=== PATIENT | male | born 1995 | race Caucasian/White ===

== ENCOUNTER 2019-06-10 16:49 | Emergency (ER) | payer OTHER, SELFPAY ==
[2019-06-10 16:49] VITALS: BP 156/84; PULSE 99; RESP 18; TEMP 36.8; O2SAT 99; BMI 21.4
--- NOTE | 2019-06-10 18:35 | ED.URI ---
HPI - URI/Sore Throat <Snadhya Mcclellan PA-C - Last Filed: 06/10/19 21:25> General Chief Complaint: Upper Respiratory Symptoms Stated Complaint: SORE THROAT Time Seen by Provider: 06/10/19 17:03 Source: patient Mode of arrival: ambulatory Limitations: no limitations History of Present Illness HPI Narrative: This 24-year-old male comes to ED secondary to 2 day history of sore throat. He states that this started yesterday, and today he woke up with more hoarseness and sore throat ?like I had been yelling?. He states throat also feels itchy. He states he has slight headache and minimal nausea though no change in p.o. intake. No vomiting. He denies nasal congestion or earache. He has had some cough with a little bit of phlegm production at times, no dyspnea. He denies any fever. Last travel was to [facility] 2 months ago, no recent travel or known exposures. He denies any other complaints on systems review Related Data Previous Rx's Medication Instructions Recorded lidocaine HCl [Lidocaine Viscous] 15 ml PO Q3-4H PRN #150 ml 06/10/19 naproxen 500 mg PO Q12H PRN #14 tab 06/10/19 Allergies Allergy/AdvReac Type Severity Reaction Status Date / Time No Known Drug Allergies Allergy Verified 06/10/19 16:58 Review of Systems <Sandhya Mcclellan PA-C - Last Filed: 06/10/19 21:25> Review of Systems ROS Unobtainable: All systems reviewed & are unremarkable except as noted in HPI and below PFSH <Sandhya Mcclellan PA-C - Last Filed: 06/10/19 21:25> Medical History (Updated 06/10/19 @ 19:19 by Sandhya Mcclellan PA-C) No chronic problems (Chronic) Surgical History (Updated 06/10/19 @ 19:19 by Sandhya Mcclellan PA-C) No history of previous surgery (Chronic) Social History (Updated 06/10/19 @ 19:19 by Sandhya Mcclellan PA-C) Smoking Status: Former smoker Social History (Updated 06/10/19 @ 19:19 by Sandhya Mcclellan PA-C) Smoking Status: Former smoker Exam <Sandhya Mcclellan PA-C - Last Filed: 06/10/19 21:25> Narrative Exam Narrative: GENERAL APPEARANCE: Patient sitting comfortably, in no distress. HEAD: No sinus TTP. EYES: PERRL, EOMI. EARS: Normal auditory canals, TMS intact with normal light reflexes. ORAL CAVITY: Normal oropharynx. THROAT: Mild erythema, no exudate. Voice slightly hoarse NECK/THYROID: Neck supple, full range of motion, shoddy anterior cervical lymphadenopathy. LUNGS: Clear to auscultation bilaterally, no cough on exam. HEART: RRR without murmur, nl S1, S2, no S3 or S4. Initial Vital Signs Initial Vital Signs: Vital Signs Temperature 98.2 F 06/10/19 16:49 Pulse Rate 99 H 06/10/19 16:49 Respiratory Rate 18 06/10/19 16:49 Blood Pressure 156/84 H 06/10/19 16:49 Pulse Oximetry 99 06/10/19 16:49 <DO Parth Jj Last Filed: 06/11/19 02:14> Initial Vital Signs Initial Vital Signs: Vital Signs Temperature 98.2 F 06/10/19 16:49 Pulse Rate 99 H 06/10/19 16:49 Respiratory Rate 18 06/10/19 16:49 Blood Pressure 156/84 H 06/10/19 16:49 Pulse Oximetry 99 06/10/19 16:49 Course <LOVE Wallace Last Filed: 06/10/19 21:25> Vital Signs Vital signs: Vital Signs - 8 hr 06/10/19 19:06 Pulse Rate 87 Respiratory Rate 16 Blood Pressure [Left Arm] 138/98 H Pulse Oximetry 98 <DO Parth Jj Last Filed: 06/11/19 02:14> Vital Signs Vital signs: Vital Signs - 8 hr 06/10/19 19:06 Pulse Rate 87 Respiratory Rate 16 Blood Pressure [Left Arm] 138/98 H Pulse Oximetry 98 MDM - URI/Sore Throat <LOVE Wallace Last Filed: 06/10/19 21:25> Lab Data Labs: Point of Care Testing Rapid Strep A Negative <DO Parth Jj Last Filed: 06/11/19 02:14> Lab Data Labs: Point of Care Testing Rapid Strep A Negative Discharge Plan Departure Patient Disposition: Home Clinical Impression: Cough Pharyngitis Qualifiers: Pharyngitis/tonsillitis etiology: unspecified etiology Qualified Code(s): J02.9 - Acute pharyngitis, unspecified Discharge Date/Time: 06/10/19 19:12 Instructions: DI for Viral Pharyngitis Activity Restrictions/Additional Instructions: Your sore throat and cough are most likely related to a cold type of virus. Your test for strep throat was negative today. Typically these infections resolve on their own with a little time and are treated symptomatically. I have sent in a prescription to [facility] in [place] for anti-inflammatory pain medicine to take twice daily instead of ibuprofen, as well as some liquid anesthetic to use for your throat as needed. Please stay off of work at least for tomorrow and also Saturday if you continue to have a cough since this infection may be contagious. You should return as we talked about if you have any acutely worsening symptoms in the interim, [place] if you are not getting better. Prescriptions: New lidocaine HCl [Lidocaine Viscous] 2 % solution 15 ml PO Q3-4H PRN (Reason: pain) Qty: 150 RF: 0 naproxen 500 mg tablet 500 mg PO Q12H PRN (Reason: pain) Qty: 14 RF: 0 Referrals: [email or web address] [Provider Group] Stand Alone Forms: Work Release Note
[2019-06-10 19:06] VITALS: BP 138/98; PULSE 87; RESP 16; O2SAT 98
== END 2019-06-10 19:12 | disposition home or self-care (01) ==
PROVIDERS: Emergency Provider Internal Medicine
DX: J02.9 Acute pharyngitis, unspecified (principal); R05 Cough
CPT/HCPCS: 87880; 99282; 99283

== ENCOUNTER 2019-06-25 23:05 | Emergency (ER) | payer OTHER, SELFPAY ==
[2019-06-25 23:11] VITALS: BP 139/101; PULSE 94; RESP 14; TEMP 37.3; O2SAT 94; BMI 20.9
--- NOTE | 2019-06-25 23:57 | ED.URI ---
HPI - URI/Sore Throat General Chief Complaint: Upper Respiratory Symptoms Stated Complaint: sore throat/coughing/intense neck pain Time Seen by Provider: 06/25/19 23:45 Source: patient Mode of arrival: ambulatory Limitations: no limitations History of Present Illness HPI Narrative: Patient is a 24-year-old male with 2 weeks of sore throat. He has been seen by an outside facility had a negative strep test. He states that he continues to have a sore throat and over the past day started have left-sided neck pain. No fevers. No problems swelling. No problems breathing. Has not tried anything for symptoms prior to. Related Data Previous Rx's Medication Instructions Recorded lidocaine HCl [Lidocaine Viscous] 15 ml PO Q3-4H PRN #150 ml 06/10/19 naproxen 500 mg PO Q12H PRN #14 tab 06/10/19 Allergies Allergy/AdvReac Type Severity Reaction Status Date / Time No Known Drug Allergies Allergy Verified 06/25/19 23:11 Review of Systems Constitutional Constitutional: Denies fever(s) ENT Ears, Nose, Mouth, and Throat: Denies vertigo, Denies dizziness, Denies dry mouth, Denies facial pain, Denies neck mass, Reports neck pain, Denies disequilibrium and Reports sore throat Cardiovascular Cardiovascular: Denies chest pain and Denies dyspnea Respiratory Respiratory: Denies dyspnea Musculoskeletal Musculoskeletal: Reports neck pain Integumentary/Breasts Skin/Breast: Denies lesions and Denies rash Neurologic Neurologic: Denies confusion, Denies vertigo, Denies dizziness and Denies disequilibrium Psychiatric Psychiatric: Denies confusion PFSH Medical History No chronic problems (Chronic) Surgical History (Updated 06/10/19 @ 19:19 by Sandhya Mcclellan PA-C) No history of previous surgery (Chronic) Social History Smoking Status: Former smoker Social History Smoking Status: Former smoker Exam Initial Vital Signs Initial Vital Signs: Vital Signs Temperature 99.2 F 06/25/19 23:11 Pulse Rate 94 H 06/25/19 23:11 Respiratory Rate 14 06/25/19 23:11 Blood Pressure 139/101 H 06/25/19 23:11 Pulse Oximetry 94 06/25/19 23:11 Const General: cooperative and comfortable Orientation: alert, awake and oriented x3 HENMT Head: normal to inspection and normocephalic Ears: TM's normal bilaterally Mouth: oral mucosae normal Teeth and gingiva: dentition normal Neck Lymphatic: No lymphadenopathy Resp Effort & Inspection: normal respiratory effort Auscultation: clear to auscultation bilaterally Cardio Rate: regular rate Rhythm: regular rhythm Skin Lesions: no lesions Rashes: no rashes Neuro General: alert and awake Cognition: normal cognition Speech: speech normal Extrem General: normal to inspection and capillary refill normal Psych Appearance: grossly normal and well kempt Course Orders Ordered: ED Orders 06/25/19 23:47 Monotest Stat Throat Culture Stat Discontinued Medications Dexamethasone (Decadron) 10 mg PO NOW ONE Stop: 06/26/19 00:34 Last Admin: 06/26/19 00:40 Dose: 10 mg Documented by: ARRINGTO Vital Signs Vital signs: Vital Signs - 8 hr 06/25/19 23:11 06/26/19 01:00 Temperature 99.2 F Pulse Rate 94 H 88 Respiratory Rate 14 12 Blood Pressure 139/101 H 128/105 H Pulse Oximetry 94 97 MDM - URI/Sore Throat Lab Data Attestation: I reviewed the patient's lab results. Labs: Lab Results 06/26/19 Range/Units 00:11 Monoscreen Negative (Negative) Point of Care Testing Rapid Strep A Negative MDM Narrative Medical decision making narrative: Nontoxic. Low suspicion for meningitis. Low suspicion for [employer] or retropharyngeal abscess. [place] test was negative. rapid strep was again negative today however throat culture was obtained. patient was given Decadron here in the emergency department. Discussed use of decongestants. Hold on further workup for now. Patient was given return precautions and follow-up instructions. He expressed understanding and agreement with plan. Discharge Plan Departure Patient Disposition: Home Clinical Impression: Pharyngitis Qualifiers: Pharyngitis/tonsillitis etiology: unspecified etiology Qualified Code(s): J02.9 - Acute pharyngitis, unspecified Discharge Date/Time: 06/26/19 01:01 Instructions: Sore Throat Activity Restrictions/Additional Instructions: I do recommend you start taking a decongestant such as Claritin or Kathy or Zyrtec. You can buy these [id number]. Contact your primary provider for a follow-up. Return to the emergency department for any new symptoms. Prescriptions: No Action lidocaine HCl [Lidocaine Viscous] 2 % solution 15 ml PO Q3-4H PRN (Reason: pain) Qty: 150 RF: 0 naproxen 500 mg tablet 500 mg PO Q12H PRN (Reason: pain) Qty: 14 RF: 0
[2019-06-26 00:27] LABS: Monotest Negative (Negative)
[2019-06-26] MEDS: DEXAMETHASONE 10 MG/ML VIAL PO (00:40)
[2019-06-26 01:00] VITALS: BP 128/105; PULSE 88; RESP 12; O2SAT 97
== END 2019-06-26 01:01 | disposition home or self-care (01) ==
PROVIDERS: Emergency Provider Emergency Medicine
DX: J02.9 Acute pharyngitis, unspecified (principal)
CPT/HCPCS: 36415; 86318; 87070; 87880; 99282; 99283; J1100